=== PATIENT | female | born 1970 | race Caucasian/White ===

== ENCOUNTER 2016-05-27 21:06 | Emergency (ER) | payer OTHER ==
[2016-05-27] MEDS ORDERED: AUGMENTIN 875 MG TAB As Ordered ONE (21:39)
--- NOTE | 2016-05-27 21:52 | EDDOCDS ---
Physician Documentation [facility] Name: Qiana Agrawal Age: 46 yrs Sex: Female : 1970 Arrival Date: 05/27/2016 Time: 21:06 Bed TR7 Private MD: Anila Yost E Disposition: 05/27/16 21:37 Discharged to Home/Self Care. Impression: Laceration without foreign body of lip, Bitten by dog - PUPPY. - Condition is Stable. - Discharge Instructions: Animal Bite, [id number], Facial Laceration, [id number]-[id number]. - Medication Reconciliation, Local Pharmacy Hours form. - Follow up: Anila Yost; When: 2 - 3 days; Reason: Wound/Symptom Recheck, Further diagnostic work-up, Recheck today's complaints, Continuance of care. - Problem is new. - Symptoms are unchanged. - Notes: YOU WERE PRESCRIBED ANTIBIOTICS WHEN YOU WERE SEEN AT URGENT CARE. IT IS IMPORTANT THAT YOU TAKE ALL OF THIS MEDICATION PRESCRIBED. PLEASE BE CERTAIN TO READ AND FOLLOW YOUR DISCHARGE INSTRUCTIONS CAREFULLY. Historical: - Allergies: Clindamycin (Upset stomach); - Home Meds: 1. Lexapro Oral 1 tab once daily 2. meclizine 25 mg Oral tab as needed - PMHx: Depression; Hypertension; Migraine Headaches; - PSHx: none; - Social history: Smoking status: Patient states was never smoker of tobacco. No barriers to communication noted, The patient speaks fluent Uruguayan. - Family history: Not pertinent. - : The pt / caregiver states he / she is not on anticoagulants. Home medication list is obtained from the patient. - Exposure Risk Screening:: None identified. 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 3 in. (160.02 cm) (R); Pain 3/10; 21:08 Body Mass Index 47.12 (120.66 kg, 160.02 cm) gr2 MDM: 21:36 Dressing ordered. btw 21:36 Amoxicillin-Clavulanate 875 mg 1 tabs PO once ordered. btw Administered Medications: 21:48 Drug: Amoxicillin-Clavulanate 1 tabs [amoxicillin 875 mg-potassium clavulanate 125 mg ld5 tablet (1 tabs)] Route: PO; Signatures: Freida CamachoRN RN rs3 Darius Gerardo PA PA btw Anila GreenRN RN ld5 MTDD
--- NOTE | 2016-05-27 21:52 | EDDOCDS ---
Nurse's Notes [facility] Name: Qiana Agrawal Age: 46 yrs Sex: Female : 1970 Arrival Date: 05/27/2016 Time: 21:06 Bed TR7 Private MD: Anila Yost E Diagnosis: Laceration without foreign body of lip;Bitten by dog-PUPPY Presentation: 05/27 21:11 Presenting complaint: Patient states: dog bite to lower lip. Adult Sepsis Screening: rs3 The patient does not have new or worsening altered mentation. Patient's respiratory rate is less than 22. Systolic blood pressure is greater than 100. Patient has a qSOFA score of 0- Negative Sepsis Screen. Suicide/Homicide risk assessment- the patient denies having any suicidal and/or homicidal ideations and does not present with any other emotional, behavioral or mental health complaints. Status: retired. Transition of care: patient was not received from another setting of care. 21:11 Acuity: ROMMEL Level 4 rs3 21:11 Method Of Arrival: Walkin/Carried/Asstd rs3 Triage Assessment: 21:13 General: Appears in no apparent distress. Pain: Location: lower lip. HIV screening NA rs3 for this visit Offered previously. 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 Lexapro Oral 1 tab once daily 2. meclizine 25 mg Oral tab as needed - PMHx: Depression; Hypertension; Migraine Headaches; - PSHx: none; - Social history: Smoking status: Patient states was never smoker of tobacco. No barriers to communication noted, The patient speaks fluent Bengali. - Family history: Not pertinent. - : The pt / caregiver states he / she is not on anticoagulants. Home medication list is obtained from the patient. - Exposure Risk Screening:: None identified. Screenin:48 Screening information is obtained from the patient. Fall risk: No risks identified. ld5 Assistance ADL's: requires no assistance with activities of daily living. Abuse/DV Screen: The patient / caregiver reports he/she is: not in a situation that causes fear, pain or injury. Nutritional screening: No deficits noted. Advance Directives: Currently, there is no health care proxy. home support is adequate. Assessment: 21:48 General: Appears in no apparent distress, Behavior is cooperative. Pain: Location: ld5 lower lip. Neurological: Level of Consciousness is awake, alert. Respiratory: Airway is patent Respiratory effort is even, unlabored. Injury Description: Laceration sustained to lower lip is not bleeding. Vital Signs: 21:08 BP 146 / 83; Pulse 83; Resp 18 S; Temp 96.9(O); Pulse Ox 98% on R/A; Weight 120.66 kg gr2 (R); Height 5 ft. 3 in. (160.02 cm) (R); Pain 3/10; 21:08 Body Mass Index 47.12 (120.66 kg, 160.02 cm) gr2 Vitals: 21:08 Log In Time: May 27, 2016 at 21:08. gr2 ED Course: 21:08 Patient visited by Manjeet Dallas. gr2 21:08 Anila Yost is Private Physician. gr2 21:08 Patient moved to Waiting gr2 21:09 Patient visited by Manjeet Dallas. gr2 21:09 Patient moved to Pre RCE gr2 21:10 Patient visited by Manjeet Dallas. gr2 21:12 Triage Initiated rs3 21:14 Patient moved to Triage 3 rs3 21:22 Darius Gerardo PA is PHCP. btw 21:22 Osorio Rivero DO is Attending Physician. btw 21:22 Patient visited by Darius Gerardo PA. btw 21:37 Anila Yost is Referral Physician. btw 21:48 Patient moved to TR7 ld5 21:48 The patient / caregiver is instructed regarding the plan of care and ED course. ld5 21:48 No IV's were initiated during this patient's visit. No procedures done that require ld5 assistance. Dressings: wet to dry dressing to lower lip. 21:51 Patient visited by Anila Green RN. ld5 Administered Medications: 21:48 Drug: Amoxicillin-Clavulanate 1 tabs [amoxicillin 875 mg-potassium clavulanate 125 mg ld5 tablet (1 tabs)] Route: PO; Order Results: There are currently no results for this order. Outcome: 21:37 Discharge ordered by Provider. btw 21:48 Discharge Assessment: Patient awake, alert and oriented x 3. No cognitive and/or ld5 functional deficits noted. Patient verbalized understanding of disposition instructions. patient administered narcotics - no. The following High Risk Discharge criteria are identified: None. Discharged to home ambulatory, with significant other. Condition: stable. Discharge instructions given to patient, significant other, Instructed on discharge instructions, follow up and referral plans. medication usage, wound care, Demonstrated understanding of instructions, medications, Pt was receptive of discharge instructions/ teaching. No special radiology studies were completed. Property :Personal belongings accompany Pt. 21:51 Patient left the ED. ld5 Signatures: Freida Camacho,RN RN rs3 Darius Gerardo PA PA biankaw Anila Green RN RN ld5 Manjeet Dallas gr2 Corrections: (The following items were deleted from the chart) 21:10 21:08 BP 146 / 83; Pulse 83bpm; Resp 18bpm; Spontaneous; Pulse Ox 98% RA; Temp 96.9F gr2 Oral; 75.3 kg Reported; Height 5 ft. 3 in. Reported; BMI: 29.4; Pain 3/10; gr2 MTDD
--- NOTE | 2016-05-29 22:52 | EDDOCDS ---
Physician Documentation [facility] Name: Qiana Agrawal Age: 46 yrs Sex: Female : 1970 Arrival Date: 05/27/2016 Time: 21:06 Bed TR7 Private MD: Anila Yost E Disposition: 05/27/16 21:37 Discharged to Home/Self Care. Impression: Laceration without foreign body of lip, Bitten by dog - PUPPY. - Condition is Stable. - Discharge Instructions: Animal Bite, [id number], Facial Laceration, [id number]-[id number]. - Medication Reconciliation, Local Pharmacy Hours form. - Follow up: Anila Yost; When: 2 - 3 days; Reason: Wound/Symptom Recheck, Further diagnostic work-up, Recheck today's complaints, Continuance of care. - Problem is new. - Symptoms are unchanged. - Notes: YOU WERE PRESCRIBED ANTIBIOTICS WHEN YOU WERE SEEN AT URGENT CARE. IT IS IMPORTANT THAT YOU TAKE ALL OF THIS MEDICATION PRESCRIBED. PLEASE BE CERTAIN TO READ AND FOLLOW YOUR DISCHARGE INSTRUCTIONS CAREFULLY. Historical: - Allergies: Clindamycin (Upset stomach); - Home Meds: 1. Lexapro Oral 1 tab once daily 2. meclizine 25 mg Oral tab as needed - PMHx: Depression; Hypertension; Migraine Headaches; - PSHx: none; - Social history: Smoking status: Patient states was never smoker of tobacco. No barriers to communication noted, The patient speaks fluent Argentine. - Family history: Not pertinent. - : The pt / caregiver states he / she is not on anticoagulants. Home medication list is obtained from the patient. - Exposure Risk Screening:: None identified. 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 3 in. (160.02 cm) (R); Pain 3/10; 21:08 Body Mass Index 47.12 (120.66 kg, 160.02 cm) gr2 MDM: 21:36 Dressing ordered. btw 21:36 Amoxicillin-Clavulanate 875 mg 1 tabs PO once ordered. [facility] 05/28 06:46 T-Sheet-- Draft Copy was scanned into [employer] and attached to record. [facility] Administered Medications: 05/27 21:48 Drug: Amoxicillin-Clavulanate 1 tabs [amoxicillin 875 mg-potassium clavulanate 125 mg ld5 tablet (1 tabs)] Route: PO; Signatures: Freida Camacho RN RN rs3 Darius Gerardo PA PA btw Anila Green RN RN ld5 Elba Morel [facility] The chart was reviewed and I authenticate all verbal orders and agree with the evaluation and treatment provided.Attachments: 05/28 06:46 T-Sheet-- Draft Copy [facility] Chart Complete MTDD
--- NOTE | 2016-05-29 22:52 | EDDOCDS ---
Nurse's Notes [facility] Name: Qiana Agrawal Age: 46 yrs Sex: Female : 1970 Arrival Date: 05/27/2016 Time: 21:06 Bed TR7 Private MD: Anila Yost E Diagnosis: Laceration without foreign body of lip;Bitten by dog-PUPPY Presentation: 05/27 21:11 Presenting complaint: Patient states: dog bite to lower lip. Adult Sepsis Screening: rs3 The patient does not have new or worsening altered mentation. Patient's respiratory rate is less than 22. Systolic blood pressure is greater than 100. Patient has a qSOFA score of 0- Negative Sepsis Screen. Suicide/Homicide risk assessment- the patient denies having any suicidal and/or homicidal ideations and does not present with any other emotional, behavioral or mental health complaints. Status: retired. Transition of care: patient was not received from another setting of care. 21:11 Acuity: ROMMEL Level 4 rs3 21:11 Method Of Arrival: Walkin/Carried/Asstd rs3 Triage Assessment: 21:13 General: Appears in no apparent distress. Pain: Location: lower lip. HIV screening NA rs3 for this visit Offered previously. 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 Lexapro Oral 1 tab once daily 2. meclizine 25 mg Oral tab as needed - PMHx: Depression; Hypertension; Migraine Headaches; - PSHx: none; - Social history: Smoking status: Patient states was never smoker of tobacco. No barriers to communication noted, The patient speaks fluent Kyrgyz. - Family history: Not pertinent. - : The pt / caregiver states he / she is not on anticoagulants. Home medication list is obtained from the patient. - Exposure Risk Screening:: None identified. Screenin:48 Screening information is obtained from the patient. Fall risk: No risks identified. ld5 Assistance ADL's: requires no assistance with activities of daily living. Abuse/DV Screen: The patient / caregiver reports he/she is: not in a situation that causes fear, pain or injury. Nutritional screening: No deficits noted. Advance Directives: Currently, there is no health care proxy. home support is adequate. Assessment: 21:48 General: Appears in no apparent distress, Behavior is cooperative. Pain: Location: ld5 lower lip. Neurological: Level of Consciousness is awake, alert. Respiratory: Airway is patent Respiratory effort is even, unlabored. Injury Description: Laceration sustained to lower lip is not bleeding. Vital Signs: 21:08 BP 146 / 83; Pulse 83; Resp 18 S; Temp 96.9(O); Pulse Ox 98% on R/A; Weight 120.66 kg gr2 (R); Height 5 ft. 3 in. (160.02 cm) (R); Pain 3/10; 21:08 Body Mass Index 47.12 (120.66 kg, 160.02 cm) gr2 Vitals: 21:08 Log In Time: May 27, 2016 at 21:08. gr2 ED Course: 21:08 Patient visited by Manjeet Dallas. gr2 21:08 Anila Yost is Private Physician. gr2 21:08 Patient moved to Waiting gr2 21:09 Patient visited by Manjeet Dallas. gr2 21:09 Patient moved to Pre RCE gr2 21:10 Patient visited by Manjeet Dallas. gr2 21:12 Triage Initiated rs3 21:14 Patient moved to Triage 3 rs3 21:22 Darius Gerardo PA is PHCP. btw 21:22 Osorio Rivero DO is Attending Physician. btw 21:22 Patient visited by Darius Gerardo PA. btw 21:37 Anila Yost is Referral Physician. btw 21:48 Patient moved to TR7 ld5 21:48 The patient / caregiver is instructed regarding the plan of care and ED course. ld5 21:48 No IV's were initiated during this patient's visit. No procedures done that require ld5 assistance. Dressings: wet to dry dressing to lower lip. 21:51 Patient visited by Anila Green RN. ld5 05/28 06:46 T-Sheet-- Draft Copy was scanned into [employer] and attached to record. [facility] Administered Medications: 05/27 21:48 Drug: Amoxicillin-Clavulanate 1 tabs [amoxicillin 875 mg-potassium clavulanate 125 mg ld5 tablet (1 tabs)] Route: PO; Order Results: There are currently no results for this order. Outcome: 21:37 Discharge ordered by Provider. bt 21:48 Discharge Assessment: Patient awake, alert and oriented x 3. No cognitive and/or ld5 functional deficits noted. Patient verbalized understanding of disposition instructions. patient administered narcotics - no. The following High Risk Discharge criteria are identified: None. Discharged to home ambulatory, with significant other. Condition: stable. Discharge instructions given to patient, significant other, Instructed on discharge instructions, follow up and referral plans. medication usage, wound care, Demonstrated understanding of instructions, medications, Pt was receptive of discharge instructions/ teaching. No special radiology studies were completed. Property :Personal belongings accompany Pt. 21:51 Patient left the ED. ld5 Signatures: Freida CamachoRN RN rs3 Darius Gerardo PA PA btw Anila GreenRN RN ld5 Manjeet Dallas gr2 Elba Morel Corrections: (The following items were deleted from the chart) 21:10 21:08 BP 146 / 83; Pulse 83bpm; Resp 18bpm; Spontaneous; Pulse Ox 98% RA; Temp 96.9F gr2 Oral; 75.3 kg Reported; Height 5 ft. 3 in. Reported; BMI: 29.4; Pain 3/10; gr2 Chart Complete MTDD
--- NOTE | 2016-05-29 22:52 | EDDOCDS ---
Physician Documentation [facility] Name: Qiana Agrawal Age: 46 yrs Sex: Female : 1970 Arrival Date: 05/27/2016 Time: 21:06 Bed TR7 Private MD: Anila Yost E Disposition: 05/27/16 21:37 Discharged to Home/Self Care. Impression: Laceration without foreign body of lip, Bitten by dog - PUPPY. - Condition is Stable. - Discharge Instructions: Animal Bite, [id number], Facial Laceration, Bptg-[id number]. - Medication Reconciliation, Local Pharmacy Hours form. - Follow up: Anila Yost; When: 2 - 3 days; Reason: Wound/Symptom Recheck, Further diagnostic work-up, Recheck today's complaints, Continuance of care. - Problem is new. - Symptoms are unchanged. - Notes: YOU WERE PRESCRIBED ANTIBIOTICS WHEN YOU WERE SEEN AT URGENT CARE. IT IS IMPORTANT THAT YOU TAKE ALL OF THIS MEDICATION PRESCRIBED. PLEASE BE CERTAIN TO READ AND FOLLOW YOUR DISCHARGE INSTRUCTIONS CAREFULLY. Historical: - Allergies: Clindamycin (Upset stomach); - Home Meds: 1. Lexapro Oral 1 tab once daily 2. meclizine 25 mg Oral tab as needed - PMHx: Depression; Hypertension; Migraine Headaches; - PSHx: none; - Social history: Smoking status: Patient states was never smoker of tobacco. No barriers to communication noted, The patient speaks fluent Luxembourger. - Family history: Not pertinent. - : The pt / caregiver states he / she is not on anticoagulants. Home medication list is obtained from the patient. - Exposure Risk Screening:: None identified. 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 3 in. (160.02 cm) (R); Pain 3/10; 21:08 Body Mass Index 47.12 (120.66 kg, 160.02 cm) gr2 MDM: 21:36 Dressing ordered. btw 21:36 Amoxicillin-Clavulanate 875 mg 1 tabs PO once ordered. [facility] 05/28 06:46 T-Sheet-- Draft Copy was scanned into [employer] and attached to record. [facility] Administered Medications: 05/27 21:48 Drug: Amoxicillin-Clavulanate 1 tabs [amoxicillin 875 mg-potassium clavulanate 125 mg ld5 tablet (1 tabs)] Route: PO; Signatures: Freida Camacho RN RN rs3 Darius Gerardo PA PA btw Anila Green RN RN ld5 Elba Morel [facility] The chart was reviewed and I authenticate all verbal orders and agree with the evaluation and treatment provided.Attachments: 05/28 06:46 T-Sheet-- Draft Copy [facility] Chart Complete MTDD
== END 2016-05-27 21:51 | disposition home or self-care (01) ==
LOC: M ED 21:06
DX: S01.511A Laceration without foreign body of lip, initial encounter (principal); W54.0XXA Bitten by dog, initial encounter; Y92.019 Unspecified place in single-family (private) house as the place of occurrence of the external cause; Y93.K9 Activity, other involving animal care; Y99.9 Unspecified external cause status; F32.9 Major depressive disorder, single episode, unspecified; I10 Essential (primary) hypertension; Z79.899 Other long term (current) drug therapy; Z88.1 Allergy status to other antibiotic agents

== ENCOUNTER → 2017-01-27 | Outpatient (REF) | payer OTHER ==
[2017-01-31 00:06] LABS: Lyme Disease IgG/IgM Antibodie <0.91 ISR (0.00-0.90); Lyme Disease IgM Ab Quantitati <0.80 index (0.00-0.79)
== END ==
LOC: M LAB REF 16:17
PROVIDERS: ATTEND Internal Medicine
DX: M25.50 Pain in unspecified joint (principal)

== ENCOUNTER → 2017-07-03 | Outpatient (REF) | payer OTHER ==
[2017-07-03 19:33] LABS: FERRITIN 73 NG/ML (8-252); IRON (FE) 30 UG/DL (50-170); PERCENT SATURATION 9.4 % (13.2-45.0); TOTAL IRON BINDING CAPACITY 320 UG/DL (250-450)
== END ==
LOC: M LAB REF 17:35
DX: D50.9 Iron deficiency anemia, unspecified (principal)

== ENCOUNTER 2017-10-08 16:32 | Emergency (ER) | payer OTHER ==
[2017-10-08] MEDS: ACETAMINOPHEN 325 MG TAB PO (17:15)
[2017-10-08 17:28] LABS: BASO % 0.2 % (0.0-1.0); EOS % 0.3 % (0.0-3.0); HEMATOCRIT 41.3 % (36.0-47.0); HEMOGLOBIN 14.2 g/dl (12.0-15.5); IMMATURE GRANULOCYTE % 0.3 % (0-3.0); LYMPH # 2.1 10^3/uL (1.5-4.5); MEAN CORPUSCULAR HEMOGLOBIN 28.9 pg (27.0-33.0); MEAN CORPUSCULAR HGB CONC 34.4 g/dl (32.0-36.5); MEAN CORPUSCULAR VOLUME 83.9 fl (80.0-96.0); MONO # 0.5 10^3/uL (0.0-0.8); MONO % 4.3 % (0.0-5.0); NEUTROPHILS # 8.2 10^3/uL (1.8-7.7); NEUTROPHILS % 75.9 % (36.0-66.0); PLATELET COUNT, AUTOMATED 341 10^3/uL (150-450); RED BLOOD COUNT 4.92 10^6/uL (4.00-5.40); RED CELL DISTRIBUTION WIDTH 12.3 % (11.5-14.5); WHITE BLOOD COUNT 10.8 10^3/uL (4.0-10.0)
[2017-10-08 17:49] LABS: ALBUMIN 3.5 GM/DL (3.2-5.2); ALBUMIN/GLOBULIN RATIO 0.78 (1.00-1.93); ALKALINE PHOSPHATASE 103 U/L (45-117); ALT/SGPT 32 U/L (12-78); ANION GAP 8 MEQ/L (8-16); AST/SGOT 18 U/L (7-37); BILIRUBIN,DIRECT 0.2 MG/DL (0.0-0.2); BILIRUBIN,TOTAL 0.9 MG/DL (0.2-1.0); BLOOD UREA NITROGEN 10 MG/DL (7-18); C REACTIVE PROTEIN QUANTITATIV 2.02 MG/DL (0.00-0.30); CALCIUM LEVEL 8.6 MG/DL (8.5-10.1); CARBON DIOXIDE LEVEL 29 MEQ/L (21-32); CHLORIDE LEVEL 104 MEQ/L (98-107); CREATININE FOR GFR 0.96 MG/DL (0.55-1.30); GLOMERULAR FILTRATION RATE > 60.0 (>58); GLUCOSE, FASTING 110 MG/DL (70-100); POTASSIUM SERUM 3.7 MEQ/L (3.5-5.1); SODIUM LEVEL 141 MEQ/L (136-145)
[2017-10-08 18:05] LABS: ERYTHROCYTE SEDIMENTATION RATE 44 mm/hr (0-20)
[2017-10-11 00:06] LABS: Lyme Disease IgG/IgM Antibodie <0.91 ISR (0.00-0.90); Lyme Disease IgM Ab Quantitati <0.80 index (0.00-0.79)
== END 2017-10-08 18:33 | disposition home or self-care (01) ==
LOC: M ED 16:32
DX: B34.9 Viral infection, unspecified (principal); Z88.1 Allergy status to other antibiotic agents; Z79.899 Other long term (current) drug therapy
CPT/HCPCS: 80076

== ENCOUNTER 2017-11-03 11:51 | Emergency (ER) | payer OTHER | END 2017-11-03 15:31 | disposition home or self-care (01) | LOC: M ED 11:51 | DX: S90.31XA Contusion of right foot, initial encounter (principal); R93.7 Abnormal findings on diagnostic imaging of other parts of musculoskeletal system; X58.XXXA Exposure to other specified factors, initial encounter; Y92.89 Other specified places as the place of occurrence of the external cause; I10 Essential (primary) hypertension; K21.9 Gastro-esophageal reflux disease without esophagitis; M54.9 Dorsalgia, unspecified; D64.9 Anemia, unspecified; Z88.1 Allergy status to other antibiotic agents; Z79.899 Other long term (current) drug therapy; Z98.84 Bariatric surgery status | CPT/HCPCS: 73630 ==

== ENCOUNTER 2018-03-14 17:04 | Emergency (ER) | payer BC, OTHER ==
[2018-03-14] MEDS: METOCLOPRAMIDE INJ 10MG/2ML VIAL (J2765) IV (17:55)
[2018-03-14] MEDS: NS 1,000 ML IV (17:55)
[2018-03-14] MEDS: diphenhydrAMINE INJ 50MG/ML VIAL (J1200) IV (17:55)
== END 2018-03-14 20:20 | disposition home or self-care (01) ==
LOC: M ED 17:04
DX: R51 Headache (principal); J45.909 Unspecified asthma, uncomplicated; K21.9 Gastro-esophageal reflux disease without esophagitis; Z78.0 Asymptomatic menopausal state; Z90.49 Acquired absence of other specified parts of digestive tract; Z98.890 Other specified postprocedural states; Z88.1 Allergy status to other antibiotic agents; Z79.899 Other long term (current) drug therapy
CPT/HCPCS: J1200

== ENCOUNTER 2018-04-16 15:21 | Emergency (ER) | payer BC, OTHER ==
[~2018-04-16] VITALS: Ht 160 cm; Wt 125.5 kg
[~2018-04-16 15:21] MED LIST: ESCI20TA PO; IBUP-1022 PO; K-TA10TA2 PO; MECL-86 PO; MONT10TA2 PO; PROP60TA14 PO; RIZA10TA2 PO
[2018-04-16] MEDS ORDERED: diphenhydrAMINE INJ 50MG/ML VIAL (J1200) IV STA (17:27)
[2018-04-16] MEDS ORDERED: NS 1,000 ML IV ONE (17:30)
[2018-04-16] MEDS ORDERED: ONDANSETRON 4 MG ORAL DISINTEGRATING TAB (Q0162 PER 1MG) PO ONE (17:30)
[2018-04-16] MEDS ORDERED: METOCLOPRAMIDE INJ 10MG/2ML VIAL (J2765) IV ONE (17:30)
[2018-04-16] MEDS ORDERED: KETOROLAC 30 MG/ML VIAL (J1885) IV ONE (17:30)
[2018-04-16] MEDS ORDERED: NAPR-50 PO (19:25)
[2018-04-16] MEDS ORDERED: REGL10TA6 PO (19:25)
[2018-04-16 19:38] VITALS: BP 147/84
== END 2018-04-16 19:39 | disposition home or self-care (01) ==
LOC: M ED 15:21
DX: G43.909 Migraine, unspecified, not intractable, without status migrainosus (principal); I10 Essential (primary) hypertension; J45.909 Unspecified asthma, uncomplicated; D64.9 Anemia, unspecified; Z79.899 Other long term (current) drug therapy; Z88.1 Allergy status to other antibiotic agents
CPT/HCPCS: 96374; 96375; 99284; J1200; J1885; J2765

== ENCOUNTER → 2018-11-23 | Outpatient (REF) | payer BC, OTHER ==
[~2018-11-23] MED LIST changes: +NAPR-837 PO; +REGL10TA6 PO
[2018-11-28 14:11] LABS: ALDOSTERONE 6.8 ng/dL (0.0-30.0); RENIN LEVEL 0.328 ng/mL/hr (0.167-5.380)
== END ==
LOC: M LAB REF 17:08
PROVIDERS: ATTEND Internal Medicine
DX: E87.6 Hypokalemia (principal)